=== PATIENT | male | born 1965 | race Caucasian/White ===

== ENCOUNTER 2017-08-18 19:30 | Emergency (ER) | payer OTHER ==
[2017-08-18 19:49] VITALS: RESP 16; O2SAT 97
[2017-08-18] MEDS ORDERED: PHENYLEPHRINE HCL 100 MCG/ML SYR ONE (20:08)
--- NOTE | 2017-08-18 20:39 | EDPHY ---
H & P Stated Complaint: 4hr erection s/p ED medication Time Seen by Provider: 08/18/17 19:54 HPI/ROS: CHIEF COMPLAINT: Priapism HISTORY OF PRESENT ILLNESS: The patient has a history of erectile dysfunction. The patient received an injection for treatment of his ED earlier today. This resulted in persistent priapism. The patient presents to the ED with symptoms of priapism present for the past 4 hours. The patient complains of mild penile pain. The patient reportedly has used a ephedrine injection at home in the past but was out of the medication this evening. The patient denies any additional acute complaints. REVIEW OF SYSTEMS: A comprehensive 10 point review of systems is otherwise negative aside from elements mentioned in the history of present illness. Source: Patient Exam Limitations: No limitations - Personal History Current Tetanus/Diphtheria Vaccine: Unsure Current Tetanus Diphtheria and Acellular Pertussis (TDAP): Unsure - Medical/Surgical History Hx Asthma: Yes Hx Chronic Respiratory Disease: No Hx Diabetes: No Hx Cardiac Disease: No Hx Renal Disease: No Hx Cirrhosis: No Hx Alcoholism: No Hx HIV/AIDS: No Hx Splenectomy or Spleen Trauma: No Other PMH: hx asthma, environmental allergies - Social History Smoking Status: Never smoked - Physical Exam Exam: General Appearance: Alert, no distress Respiratory: There are no retractions, lungs are clear to auscultation Cardiovascular: Regular rate and rhythm Gastrointestinal: Abdomen is soft and nontender, no masses, bowel sounds normal Genitourinary: Priapism present Skin: Warm and dry, no rashes Musculoskeletal: Neck is supple nontender Extremities: symmetrical, full range of motion Constitutional: Initial Vital Signs Temperature (C) 36.8 C 08/18/17 19:46 Heart Rate 99 08/18/17 19:46 Respiratory Rate 16 08/18/17 19:46 Blood Pressure 142/84 H 08/18/17 19:46 O2 Sat (%) 97 08/18/17 19:46 O2 Delivery Mode Room Air Allergies/Adverse Reactions: No Known Allergies Allergy (Unverified 07/08/12 12:55) Home Medications: Medication Instructions Recorded Trimix 08/18/17 Medical Decision Making Procedures: Procedure: Intra corporal injection of phenylephrine Indication: Priapism Procedure: Patient's penile shaft was prepped with Betadine. A total of 6 mL of fluid was aspirated from the corpus. I injected dilute phenylephrine 100 mcg per mL in a total of 3 mL over a 10 minutes period. ED Course/Re-evaluation: The patient presents to the ED with priapism. He was verbally consented to undergo aspiration of the corpus and injection with phenylephrine. Re-evaluation at 8:40 p.m.: The patient's priapism has resolved. He has no bleeding. He is comfortable being discharged in returning for any recurrent symptoms. Departure - Departure Disposition: Home, Routine, Self-Care Clinical Impression: Priapism, drug-induced Condition: Good Instructions: Priapism (ED) Additional Instructions: 1. Return to the ED for any recurrent erection which does not resolve, for increasing pain, fever, bleeding or other concerns. Referrals: Yaya Dover MD [Primary Care Provider] - As per Instructions
[2017-08-18] MEDS ORDERED: PHENYLEPHRINE HCL 100 MCG/ML SYR IVP ONE (20:45)
[2017-08-18 20:58] VITALS: BP 132/73; PULSE 74; TEMP 98.1
== END 2017-08-18 20:58 | disposition home or self-care (01) ==
PROC: 3E1N38Z Irrigation of Male Reproductive using Irrigating Substance, Percutaneous Approach (ICD-10-PCS; principal; 2017-08-18)
DX: N48.33 Priapism, drug-induced (principal); J45.909 Unspecified asthma, uncomplicated
CPT/HCPCS: J2370